=== PATIENT | male | born 1965 | race Caucasian/White ===

== ENCOUNTER 2020-05-05 11:36 | Emergency (ER) | payer OTHER ==
[~2020-05-05] VITALS: Ht 193 cm; Wt 145.4 kg
[2020-05-05 12:53] LABS: CREATININE 2.4 mg/dL (0.7-1.3); POTASSIUM 4.9 mmol/l (3.5-5.1); TOTAL PROTEIN 7.1 g/dL (6.3-8.2)
[2020-05-05 12:54] LABS: ALBUMIN 3.8 g/dL (3.2-5.0); BILIRUBIN, TOTAL 0.6 mg/dL (0.0-1.4)
[2020-05-05 13:08] LABS: HEMATOCRIT 39.1 % (39.0-50.0); IMMATURE GRANULOCYTES 0.4 % (0.0-5.0); MEAN CELL VOLUME 94.7 fL CALC (80.0-100.0); MEAN CORPUSCULAR HGB 31.5 pG CALC (26.0-32.0); MEAN CORPUSCULAR HGB CONC 33.2 g/dL CAL (32.0-36.0); NEUT# 2.94 thou/uL (1.82-7.42); RED BLOOD COUNT 4.13 mill/uL (4.70-6.10); RED CELL DISTRI WIDTH 13.2 % (11.5-15.5)
[2020-05-05 13:56] LABS: URINE BILIRUBIN - DIPSTICK NEGATIVE (NEGATIVE); URINE BLOOD DIPSTICK NEGATIVE (NEGATIVE); URINE COLOR YELLOW; URINE GLUCOSE - DIPSTICK NEGATIVE (NEGATIVE); URINE KETONE NEGATIVE (NEGATIVE); URINE LEUK ESTERASE NEGATIVE (NEGATIVE); URINE NITRITE - DIPSTICK NEGATIVE (Negative); URINE PH 6.5 (4.5-8.0); URINE PROTEIN - DIPSTICK 100 mg/dL (NEG-TRACE); URINE SPECIFIC GRAVITY 1.015; URINE UROBILINOGEN - DIPSTICK 0.2 E.U./dL (0.2)
[2020-05-05] MEDS ORDERED: CLARITIN-D1 TA2 PO (13:56)
[2020-05-05] MEDS ORDERED: PRILOSEC20 MG/CAP PO (13:56)
[2020-05-05] MEDS ORDERED: MULTI VIT PO (13:56)
[2020-05-05] MEDS ORDERED: LISINOPRIL20 MG PO (13:56)
[2020-05-05] MEDS ORDERED: ROBAXIN-750750 MG PO (13:57)
[2020-05-05 13:58] LABS: URINE MUCUS MODERATE hpf (NONE-FEW)
[2020-05-05] MEDS ORDERED: CEPHALEXIN500 MG PO (14:10)
[2020-05-05 14:21] VITALS: BP 158/87
== END 2020-05-05 14:34 | disposition home or self-care (01) | DRG 948 ==
LOC: ED 11:36
PROVIDERS: Emergency Medicine
DX: R60.0 Localized edema (principal); L03.115 Cellulitis of right lower limb; E66.9 Obesity, unspecified; I12.9 Hypertensive chronic kidney disease with stage 1 through stage 4 chronic kidney disease, or unspecified chronic kidney disease; N18.9 Chronic kidney disease, unspecified